=== PATIENT | male | born 1975 | race Caucasian/White ===

== ENCOUNTER → 2024-11-08 11:22 | Outpatient (REF) | payer BC, SELFPAY | LOC: HWRAD 11:22 | PROVIDERS: ATTENDING PHYSICIAN Chiropractor | DX: M54.2 Cervicalgia (principal) | CPT/HCPCS: 72050 ==

== ENCOUNTER 2024-11-13 20:37 | Emergency (ER) | payer BC, SELFPAY ==
[2024-11-13 20:58] VITALS: BP 122/78
--- NOTE | 2024-11-13 22:59 | ED.GENMED ---
History of Present Illness
<Myra Ashton DO, Resident - Last Filed: 11/13/24 23:20>
General
Chief Complaint: Allergic Reaction
Source: patient
Time Seen by Provider: 11/13/24 22:33
History of Present Illness
History of Present Illness:
Patient is a 49 year old male with PMH of guillane barre w/ residual neuropathy presnting to the ED after being stung by yellow jackets. Patient was weeding when he was swarmed by yellow jackets. He was wearing shorts, a t shirt and sneakers. The
yellow jackets got into his right shoe, stinging multiple times, stung his legs and arms, left ear and forehead. Patient had swelling, redness and pain all over his body. Patient took 2 Benadryl at home, but the swelling was increasing so patient
decided to come in to the ED. Patient did feel lightheaded at one point, but is also hungry since he hasnt eaten since lunch time. Patient does not have any known allergies. Patient has been stung in the past by wasps/yellow jackets, with only a
self limited reaction. Patient is continuing to feel better. Patient denies all other ROS.
Past History
<Myra Ashton DO, Resident - Last Filed: 11/13/24 23:20>
Past History
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 Chronic pain)
ED Past Surgical History: None
Social History
Tobacco: Non-smoker
Alcohol: None
Drug: None
Personal:
Living: with family
Family History
Family History: Other (Father with diabetes, coronary artery disease, chronic renal insufficiency. Mother with breast cancer)
Review of Systems
<Myra Ashton DO, Resident - Last Filed: 11/13/24 23:20>
Review of Systems
Constitutional: Reports no symptoms
EENT: Reports other (swelling of left ear )
Respiratory: Reports no symptoms
Cardiac: Reports no symptoms
ABD/GI: Reports no symptoms
: Reports no symptoms
Musculoskeletal: Reports no symptoms
Skin: Reports itching and rash
Neurological: Reports no symptoms
Psychiatric: Reports no symptoms
Phy Exam
<Myra Ashton DO, Resident - Last Filed: 11/13/24 23:20>
General Physical Exam
General Presentation: no apparent distress
General age: appears stated age
General Skin: other (rash present over toros, arms and legs, with focused welts and hives)
General Habitus: normal
General Mental: alert
Cardiovascular Exam
Cardiovascular Exam: regular rate/rhythm
Heart Sounds: normal
Pulmonary Exam
Pulmonary Exam: lungs clear and no respiratory distress
Gastrointestinal Exam
Gastrointestinal Exam: normal bowel sounds
Skin Exam
Skin Exam: redness and other (wheals present at sites of sting)
Course
<Myra Ashton DO, Resident - Last Filed: 11/13/24 23:20>
Vital Signs
Initial and Last Documented VS:
Initial Vital Signs
Temp Pulse Resp BP Pulse Ox
97.7 F 86 18 122/78 99
11/13/24 20:58 11/13/24 20:58 11/13/24 20:58 11/13/24 20:58 11/13/24 20:58
Last Documented Vital Signs
Temp Pulse Resp BP Pulse Ox
97.7 F 86 18 122/78 99
11/13/24 20:58 11/13/24 20:58 11/13/24 20:58 11/13/24 20:58 11/13/24 23:00
<Ludwin Li DO - Last Filed: 11/13/24 23:20>
Vital Signs
Initial and Last Documented VS:
Initial Vital Signs
Temp Pulse Resp BP Pulse Ox
97.7 F 86 18 122/78 99
11/13/24 20:58 11/13/24 20:58 11/13/24 20:58 11/13/24 20:58 11/13/24 20:58
Last Documented Vital Signs
Temp Pulse Resp BP Pulse Ox
97.7 F 86 18 122/78 99
11/13/24 20:58 11/13/24 20:58 11/13/24 20:58 11/13/24 20:58 11/13/24 23:00
<Myra Ashton DO, Resident - Last Filed: 11/13/24 23:20>
MDM/Problems Addressed
Differential Diagnosis Includes:
insect stings
MDM/Problems Addressed:
Patient improving after taking Benadryl at home. Patient denying any respiratory symptoms. Patient okay to be discharge with follow up with PCP in 1-3 days.
<Myra Ashton DO, Resident - Last Filed: 11/13/24 23:20>
*Pulse Oximetry
SaO2: 99
Oxygen Mode of Delivery: Room air
Patient hypoxic: no
*Critical Care Note
Total Time (30-74mins, 75-104mins- exclusive of procedures): Not Applicable
<Ludwin Li DO - Last Filed: 11/13/24 23:20>
*Critical Care Note
Total Time (30-74mins, 75-104mins- exclusive of procedures): Not Applicable
ED Attending Note
<Myra Ashton DO, Resident - Last Filed: 11/13/24 23:20>
-
Portions of this chart may have been created with voice recognition software.� Occasional wrong word or��sound alike� substitutions may have occurred due to the inherent limitations of voice recognition software.
<Ludwin Li DO - Last Filed: 11/13/24 23:20>
ED Attending Note
Patient seen and examined by attending physician: Yes
I performed a history and physical exam of patient and discussed management with resident, I reviewed resident's note and agree with documented findings and plan of care.: Yes
ED Attending Note:
I have reviewed and Agree with history of treatment plan by Vivi Ashton DO. My exam revealed
Physical Exam
General: no apparent distress, not acutely ill
Neck: supple. no meningeal signs. normal posterior pharynx
Heart: s1/s2 regular rate and rhythm, no murmur. equal radial
pulses.
HEENT: Pupils equal round reactive to light, EOMI
Lungs: no acute respiratory distress. clear bilaterally
Abdomen: normal bowel sounds. not tender. no CVAT
Neuro: alert and oriented. no focal neurological deficits cranial nerves
Skin: Diffuse urticaria
Psychiatric: well kept. interactive and cooperative
Extremities: no edema. no calf tenderness. negative homans. good distal pulses
Patient feels better and is stable for discharge. No signs of anaphylaxis we will encourage Benadryl and Zyrtec. Return precautions given.
Discharge Plan
Departure
Patient Disposition: Home (Routine Discharge)
Date of Disposition: 11/13/24
Time of Disposition: 23:11
Patient with high blood pressure during this ER visit?: Yes
Discharge Problem:
Sting, insect
Instructions: Insect bites and stings
Prescriptions:
No Action
venlafaxine 75 MG capsule,extended release 24hr
75 mg PO DAILY PRN (Reason: neuropathies)
hydromorphone 2 MG tablet
2 mg PO Q6HPRN PRN (Reason: pain)
pregabalin 75 MG capsule
75 mg PO BID
alprazolam 0.25 MG tablet
0.25 mg PO Q8HPRN PRN (Reason: as needed)
acetaminophen 325 MG tablet
2 tab PO PRN PRN (Reason: pain)
Nirmatrelvir/Ritonavir [Paxlovid Co-Pack (Eua) Egfr 30-59 Ml/Min] 1 EACH Tablet
1 ea PO BID Qty: 10 0RF
Referrals:
NONE,* [Family Provider, Internal Medicine]
Activity Restrictions/Additional Instructions:
Patient provided with bee sting instructions. Patient advised to follow up with PCP in 1-3 days.
Interventions
Interventions:
*Risk Screen - Suicide Last Done: 11/13/24 20:58
*General Assessment Last Done: 11/13/24 20:58
*Neglect/Abuse Screening Last Done: 11/13/24 20:58
*ED- Fall Risk Assessment Last Done: 11/13/24 20:58
Discharge Date and Time
Print Language: DJIBOUTIAN
== END 2024-11-13 23:26 | disposition home or self-care (01) ==
LOC: EMR 20:37
PROVIDERS: EMERGENCY PHYSICIAN Emergency Medicine
DX: T63.441A Toxic effect of venom of bees, accidental (unintentional), initial encounter (principal); R21 Rash and other nonspecific skin eruption; G89.29 Other chronic pain
CPT/HCPCS: 99282

== ENCOUNTER → 2025-01-29 19:10 | Outpatient (REF) | payer BC, SELFPAY | LOC: MRI 19:10 | PROVIDERS: ATTENDING PHYSICIAN Anesthesiology; FAMILY PHYSICIAN Family Medicine | DX: M54.2 Cervicalgia (principal); M54.6 Pain in thoracic spine | CPT/HCPCS: 72141; 72146 ==